=== PATIENT | female | born 1985 | race Caucasian/White ===

== ENCOUNTER → 2021-02-19 | Outpatient (CLI) | payer OTHER ==
--- NOTE | 2021-02-19 12:22 | RAD ---
EXAM: Chest, 2 views. HISTORY: Shortness of breath. COMPARISON: None. FINDINGS: 2 views of the chest are obtained. There is no infiltrate, pleural effusion or pneumothorax . The heart is normal in size. There is evidence of prior median sternotomy and cardiac valve surgery . There is a cardiac pacemaker in expected position. IMPRESSION: No acute pulmonary finding. Electronically signed by: Alessandra Urena MD (02/19/2021 12:19 PM) [id number]
== END ==
LOC: PF 10:32
PROVIDERS: ATTEND Anesthesiology Pain Medicine
DX: R06.02 Shortness of breath (principal)
CPT/HCPCS: 71046; 94010; 94729